=== PATIENT | female | born 1995 | race Two or more races ===

== ENCOUNTER 2024-03-14 02:00 | Inpatient (IN) ==
[2024-03-14 02:18] VITALS: BMI 42.7
[2024-03-14] MEDS ORDERED: PITOCIN ONE ×2 (02:35→02:37)
[2024-03-14] MEDS ORDERED: NS 1,000 ML IV 1,000 ML ONE (02:37)
[2024-03-14] MEDS: XYLOCAINE 1 % (PLAIN) ONE (02:45)
[2024-03-14] MEDS ORDERED: ZOFRAN INJ 4 MG VIAL IVP PRN (02:45)
[2024-03-14] MEDS: OXYTOCIN 20 UNIT/1,000 ML-NS 20 UNIT/1,000 ML PLAST..BAG IV PRN (02:45)
[2024-03-14] MEDS ORDERED: REGLAN INJ 10 MG VIAL IVP PRN (02:45)
[2024-03-14] MEDS ORDERED: NUBAIN INJ 20 MG AMP IVP PRN (02:45)
[2024-03-14] MEDS: PITOCIN IVP ONE (02:45)
[2024-03-14 03:24] LABS: BASOPHILS # (AUTO) 0.1 X10^3/uL (0.0-0.1); BASOPHILS % (AUTO) 0.8 % (0.2-1.0); EOSINOPHILS % (AUTO) 0.1 % (0.9-2.9); HEMATOCRIT 34.4 % (36.0-47.0); HEMOGLOBIN 11.4 g/dL (12.0-16.0); LYMPHOCYTES # (AUTO) 1.6 X10^3/uL (1.3-2.9); LYMPHOCYTES % (AUTO) 20.9 % (21.0-51.0); MEAN CORPUSCULAR HEMOGLOBIN 28.4 pg (27.0-34.0); MEAN CORPUSCULAR VOLUME 86.2 fL (80.0-100.0); MEAN PLATELET VOLUME 10.6 fL (7.4-11.0); MONOCYTES # (AUTO) 0.3 x10^3/uL (0.3-0.8); MONOCYTES % (AUTO) 3.6 % (0.0-13.0); NEUTROPHILS # (AUTO) 5.8 x10^3/uL (2.2-4.8); NEUTROPHILS % (AUTO) 74.6 % (42.0-75.0); PLATELET COUNT 252 X10^3/uL (150.0-450.0); RED BLOOD COUNT 3.99 X10^6/uL (3.5-5.4); RED CELL DISTRIBUTION WIDTH 16.5 % (11.6-16.5); WHITE BLOOD COUNT 7.8 X10^3/uL (3.6-10.0)
[2024-03-14 03:28] LABS: BLOOD UREA NITROGEN 9 mg/dL (7-18); CALCIUM 8.3 mg/dL (8.5-10.1); CARBON DIOXIDE 20.6 mmol/L (21-32); CHLORIDE 107 mmol/L (98-107); CREATININE 0.93 mg/dL (0.55-1.02); GLUCOSE 105 mg/dL (65-99); POTASSIUM 3.8 mmol/L (3.5-5.1); SODIUM 142 mmol/L (136-145); eGFR NON BLACK RACES > 60 (>60)
[2024-03-14 03:32] LABS: BILIRUBIN,URINE 2+ (NEGATIVE); BLOOD/HEMOGLOBIN,URINE 4+ (NEGATIVE); GLUCOSE, URINE NEGATIVE (NEGATIVE); KETONES,URINE 1+ (NEGATIVE); LEUKOCYTE ESTERASE ,URINE 2+ (NEGATIVE); NITRITES,URINE NEGATIVE (NEGATIVE); PROTEIN,URINE 3+ (NEGATIVE); UROBILINOGEN,URINE 3+ (NORMAL)
[2024-03-14] MEDS ORDERED: OXYTOCIN 20 UNIT/1,000 ML-NS 20 UNIT/1,000 ML PLAST..BAG IV SCH (03:45)
[2024-03-14 03:48] LABS: APPEARANCE,URINE SLIGHTLY HAZY (CLEAR); COLOR,URINE AMBER (YELLOW)
[2024-03-14 03:49] LABS: BACTERIA,URINE TRACE /HPF (NEGATIVE); SQUAMOUS EPITHELIAL CELL,UR MODERATE /HPF (NEGATIVE)
[2024-03-14] MEDS: D5 1/2 NS 1,000 ML 1,000 ML IV SCH (05:30)
[2024-03-14] MEDS: MOTRIN TAB 800 MG PO PRN (05:57)
[2024-03-15 00:49] VITALS: O2SAT 98
[2024-03-15 05:32] LABS: HEMATOCRIT 23.8 % (36.0-47.0); HEMOGLOBIN 8.1 g/dL (12.0-16.0)
[2024-03-15] MEDS: INFeD or DEXFERRUM 25 MG in NS 100 ML IV 100 ML IV ONE (09:05)
[2024-03-15 09:39] VITALS: RESP 18
[2024-03-15] MEDS: INFeD or DEXFERRUM 975 MG in NS 500 ML IV 500 ML IV ONE (10:37)
[2024-03-15 11:53] VITALS: BP 145/67; PULSE 65; TEMP 97.9
== END 2024-03-15 15:15 | disposition home or self-care (01) | DRG 807 ==
LOC: ER 02:00 → MED/SURG 02:21 → LD 02:37 → MED/SURG 04:44
PROVIDERS: ADMIT Obstetrics & Gynecology Obstetrics; ATTEND Obstetrics & Gynecology Obstetrics
DX: O71.4 Obstetric high vaginal laceration alone; O26.893 Other specified pregnancy related conditions, third trimester; Z3A.40 40 weeks gestation of pregnancy; Z37.0 Single live birth; O71.82 Other specified trauma to perineum and vulva